=== PATIENT | female | born 1970 | race Caucasian/White ===

== ENCOUNTER 2018-11-21 13:27 | Emergency (ER) | payer OTHER ==
[~2018-11-21] VITALS: Ht 170.2 cm; Wt 70.5 kg
--- NOTE | 2018-11-21 14:10 | NUR ---
PT TO ROOM FROM LOBBY
[2018-11-21 14:11] LABS: BASOPHILS # (AUTO) 0.04 x10^3/uL (0-0.1); BASOPHILS % (AUTO) 1 % (0-1); EOSINOPHILS # (AUTO) 0.35 x10^3/uL (0-0.4); EOSINOPHILS % (AUTO) 4 % (1-7); LYMPHOCYTES # (AUTO) 2.41 x10^3/uL (1-3.4); LYMPHOCYTES % (AUTO) 29 % (22-44); MD NO; MEAN CORPUSCULAR HEMOGLOBIN 30.3 pg (27.0-34.8); MEAN CORPUSCULAR HGB CONC 33.6 g/dL (32.4-35.8); MEAN PLATELET VOLUME 10.2 fL (7.4-10.4); MONOCYTES # (AUTO) 0.39 x10^3/uL (0.2-0.8); MONOCYTES % (AUTO) 5 % (2-9); NEUTROPHILS # (AUTO) 5.08 x10^3/uL (1.8-6.8); NEUTROPHILS % (AUTO) 62 % (42-75); PLATELET COUNT 174 x10^3/uL (130-400); RED BLOOD COUNT 4.77 x10^6/uL (3.82-5.3); RED CELL DISTRIBUTION WIDTH 14.8 % (9.6-15.2)
[2018-11-21 14:23] LABS: ALBUMIN 3.8 g/dL (3.4-5.0); ANION GAP 7 mmol/L (5-15); CALCIUM 9.4 mg/dL (8.5-10.1); CHLORIDE 109 mmol/L (98-107)
[2018-11-21 14:28] LABS: CREATININE 0.94 mg/dL (0.55-1.02); TROPONIN I < 0.015 ng/mL (0.000-0.045)
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
[2018-11-21 16:09] VITALS: BP 98/64
--- NOTE | 2018-11-21 16:10 | NUR ---
EDPA JOE AT BEDSIDE TO EXPLAIN RESULTS AND POC. PT GIVEN DC INSTRUCTIONS AND SCRIPT, PT EDUCATED TO FOLLOW UP WITH HOLD WORKER, REFERRAL PROVIDED. PT GIVEN DC INSTRUCTIONS AND SCRIPT. PT EDUCATED REGARDING DC RX FOR ASPIRIN. PER EDPA, NO ASA TO BE ADMIN DURING THIS ED VISIT. PT A&O, RESPS EVEN AND UNLABORED, NSR ON TAX EXPERT WITH NO ECTOPY. PT AMB TO DC DESK WITH STEADY GAIT, NADN AT DC.
== END 2018-11-21 16:14 | disposition home or self-care (01) ==
LOC: ED 15:12
DX: R07.89 Other chest pain (principal)
CPT/HCPCS: 36415; 71045; 80048; 82040; 84484; 85025; 93005; 99284

== ENCOUNTER 2021-05-21 21:54 | Emergency (ER) | payer OTHER ==
[~2021-05-21] VITALS: Ht 170.2 cm; Wt 70.3 kg
--- NOTE | 2021-05-21 23:33 | NUR ---
PT MOVED TO ROOM
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
[2021-05-21 23:45] VITALS: BP 115/82
--- NOTE | 2021-05-22 00:07 | NUR ---
LICENSING REGISTRATION EXAMINER AT BEDSIDE IMPLEMENTING MARJ WRAP
--- NOTE | 2021-05-22 00:18 | NUR ---
Patient/Caregiver given discharge instructions and they have confirmed that they understand the instructions. Patient ambulatory with steady gait. NAD, all questions answered appropriately, denies additional needs at this time. No personal belongings left in room after discharge.
== END 2021-05-22 00:20 | disposition home or self-care (01) ==
LOC: ED 22:00
DX: S80.11XA Contusion of right lower leg, initial encounter (principal); V89.2XXA Person injured in unspecified motor-vehicle accident, traffic, initial encounter; Y93.89 Activity, other specified; Y92.410 Unspecified street and highway as the place of occurrence of the external cause; Y99.8 Other external cause status
CPT/HCPCS: 99284